=== PATIENT | male | born 1970 | race Caucasian/White ===

== ENCOUNTER 2021-12-25 17:40 | Emergency (ER) | payer OTHER, MEDICAID ==
[~2021-12-25] VITALS: Ht 180.3 cm; Wt 81.8 kg
--- NOTE | 2021-12-25 18:41 | PHYS DOC ---
Past History Past Surgical History: Other Additional Past Surgical Histo: L knee scope, septoplasty Alcohol Use: None Adult General Chief Complaint Chief Complaint: FLANK PAIN HPI HPI Patient is a otherwise healthy 51-year-old male who presents with a chief complaint of acute onset right flank pain which started last night, 8 out of 10, sharp in nature with progressive radiation since last night towards his groin. States he is never had anything like this before. Denies recent trauma, travel, illnesses, fevers, chest pain, shortness of breath, other abdominal pain, vomiting, dysuria, hematuria. Review of Systems Review of Systems Review of systems otherwise unremarkable except noted in HPI Allergies Allergies Allergies Coded Allergies Type Severity Reaction Last Updated Verified No Known Drug Allergies 12/25/21 No Physical Exam Physical Exam Constitutional: Well developed, well nourished, no acute distress, non-toxic appearance. [] HENT: Normocephalic, atraumatic, Eyes: conjunctiva normal, no discharge. [] Neck: Normal range of motion, no tenderness, supple, no stridor. [] Cardiovascular:Heart rate regular rhythm, no murmur [] Lungs & Thorax: Bilateral breath sounds clear to auscultation [] Abdomen:soft, no tenderness, no masses, no pulsatile masses. [] Skin: Warm, dry, no erythema, no rash. [] Back: Right CVA tenderness. [] Extremities: No tenderness, ROM intact, no edema. [] Neurologic: Alert and oriented X 3, no focal deficits noted. [] Psychologic: Affect normal, judgement normal, mood normal. [] Current Patient Data Vital Signs Vital Signs Date Time Temp Pulse Resp B/P (MAP) Pulse Ox O2 Delivery O2 Flow Rate FiO2 12/25/21 18:21 98.8 70 20 105/61 (76) 97 Room Air EKG EKG [] Radiology/Procedures Radiology/Procedures [] Heart Score C/O Chest Pain: No Risk Factors: Risk Factors: DM, Current or recent (<one month) smoker, HTN, HLP, family history of CAD, obesity. Risk Scores: Risk Factors: DM, Current or recent (<one month) smoker, HTN, HLP, family history of CAD, obesity. Course & Med Decision Making Course & Med Decision Making Patient is a 51-year-old male who presents with acute onset right flank pain Vital signs nonconcerning. Physical exam noted above. Given pain and nausea medicine. Urinalysis not concerning. CT only notable for lumbar disc disease. On reassessment patient was feeling better but did state he has had a longstanding history of low back pain and wanted pain managed for that. States he does have a primary care physician in [place] that he can call in the morning but has not talked to her about this. States he had not had an MRI in a while. Discussed symptom management at home. Advised to call primary care physician first thing in the morning to update on ED visit. Also advised to call the [place] [facility] and given contact information. Also advised repeat recent MRI for both his PCP and pain management so they can better evaluate his needs. Gave return precautions to the ED. Patient grateful, verbalized understanding and agreed with plan of discharge. [] Dragon Disclaimer Dragon Disclaimer This electronic medical record was generated, in whole or in part, using a voice recognition dictation system. Departure Departure: Impression: Primary Impression: Back pain Additional Impressions: Acute exacerbation of chronic low back pain Lumbar disc disease Disposition: HOME / SELF CARE / HOMELESS Condition: STABLE Referrals: DAYRON ZUNIGA DO (PCP) Patient Instructions: Back Pain, Adult Additional Instructions: Thank you for coming into the emergency department tonight and allowing us to take care of you. Please read the attached information carefully to go over things we discussed. Please begin a Tylenol, ibuprofen, Benadryl and ice regimen at home. You can take 1000 mg of Tylenol every 8 hours, 800 mg of ibuprofen every 8 hours, Benadryl at 50 mg every 6 hours and ice as needed. Please call your primary care physician in the morning to update on your ED visit and set up a follow-up as soon as you can to discuss chronic pain management and need for a recent MRI. Call the [place] [facility] in [place] at [phone] [place] in the morning as well to establish care. They would also probably like to have a recent MRI. Please come back with new or concerning symptoms as discussed. Problem Qualifiers ARTURO ROMERO MD Dec 25, 2021 18:41
[2021-12-25] MEDS ORDERED: ONDANSETRON PF 4 MG/2 ML VIAL. IVP ONE (18:45)
--- NOTE | 2021-12-25 19:49 | RAD ---
CT abdomen and pelvis without contrast PQRS statement: CT scans at this facility use dose reduction including either automated exposure cont rol, iterative reconstructions, and /or weight based radiation dosing via mA and kV modification when appropriate to reduce radiation dose to as low as reasonably achievable. HISTORY: Severe right flank pain. Abdomen findings: Lung bases are unremarkable. Lumbar disc disease with disc height loss and disc bul ges and lateral disc osteophytes as well as facet arthritis with spurring with spinal canal and neura l foraminal stenoses L3-L4 through L5-S1.. There is mild atrophy of the tail of the pancreas. Liver, gallbladder, spleen, adrenal glands are unremarkable. No urinary calculi, hydronephrosis or perinephr ic edema. Calcified plaque abdominal aorta. The appendix is negative. No obstruction or inflammation GI tract. No abdominal fluid. Pelvis findings: No bladder calculi. Bladder, prostate, rectum and bones are unremarkable. No pelvic fluid. IMPRESSION: No acute process. No urinary calculi or hydronephrosis. The appendix is negative. Lumbar disc disease. Electronically signed by: Zeke Palmer MD (12/25/2021 7:47 PM) [facility]
[2021-12-25] MEDS ORDERED: diazePAM 5 MG TABLET. PO ONE (20:30)
[2021-12-25] MEDS ORDERED: KETOROLAC 30 MG/ML VIAL. IVP ONE (20:30)
[2021-12-25 20:41] LABS: BACTERIA,URINE FEW /HPF (0-FEW); BILIRUBIN,URINE NEG (NEG); CLARITY,URINE CLEAR; COLOR,URINE YELLOW; GLUCOSE,URINE NEG (NEG); NITRITE,URINE NEG (NEG); RBC,URINE 0 /HPF (0-2); UROBILINOGEN,URINE 0.2 mg/dL (0.2 mg/dL); WBC,URINE OCC /HPF (0-4)
[2021-12-25] MEDS ORDERED: oxyCODONE/APAP 5/325 1 TAB TABLET PO ONE (21:00)
[2021-12-25 21:12] VITALS: BP 145/81
== END 2021-12-25 21:12 | disposition home or self-care (01) ==
LOC: ER 17:40
DX: G89.29 Other chronic pain (principal); M54.50 Low back pain, unspecified; M51.36 Other intervertebral disc degeneration, lumbar region
CPT/HCPCS: 74176; 81001; 96374; 96375; 99284; J1885; J2405; J3010